=== PATIENT | female | born 2000 | race African-American/Black ===

== ENCOUNTER 2024-04-23 01:36 | Inpatient (IN) | payer OTHER ==
[2024-04-23 02:30] LABS: HEMATOCRIT 30.3 % (32.4-45.2); HEMOGLOBIN 9.6 GM/dL (10.7-15.3); MCH 25.7 pg (25.7-33.7); MCHC 31.6 g/dl (32.0-36.0); MEAN CELL VOLUME 81.5 fl (80-96); MEAN PLT VOLUME 8.1 fl (7.5-11.1); PLATELET COUNT 360 10^3/uL (134-434); RBC 3.72 M/mm3 (3.60-5.2); RDW 18.6 % (11.6-15.6); WHITE BLOOD COUNT 8.8 K/mm3 (4.0-10.0)
[2024-04-23 03:05] LABS: POTASSIUM 4.6 mmol/L (3.5-5.1)
[2024-04-23 03:08] LABS: ALBUMIN 3.3 g/dl (3.4-5.0); BLOOD UREA NITROGEN 15.3 mg/dL (7-18)
[2024-04-23 03:11] LABS: CREATININE 0.8 mg/dL (0.55-1.3)
[2024-04-23 03:13] LABS: BILIRUBIN,TOTAL 0.4 mg/dL (0.2-1); TOT PROT 6.9 g/dl (6.4-8.2)
[2024-04-23] MEDS ORDERED: APIXABAN 5 MG TABLET ONE (10:07)
[2024-04-23] MEDS: APIXABAN 5 MG TABLET PO SCH (11:11)
[2024-04-23 12:39] VITALS: BMI 59.9
[2024-04-23 15:18] LABS: COCAINE, UR NEGATIVE (NEGATIVE); METHADONE, UR NEGATIVE (NEGATIVE); OPIATES, URI NEGATIVE (NEGATIVE); PHENCYCLIDINE,URINE NEGATIVE (NEGATIVE)
[2024-04-23 15:19] LABS: URINE AMPHETAMINES NEGATIVE (NEGATIVE); URINE BARBITURATES NEGATIVE (NEGATIVE)
[2024-04-23 15:20] LABS: URINE BENZODIAZEPINES NEGATIVE (NEGATIVE)
[2024-04-24 00:06] VITALS: TEMP 98.2
[2024-04-24] MEDS ORDERED: ACETAMINOPHEN 325 MG TABLET (FP) PO PRN (03:00)
[2024-04-24 06:18] VITALS: BP 115/66; PULSE 69; RESP 16
[2024-04-24] MEDS ORDERED: guaiFENesin/D-METHORPHAN HB 10 ML UNIT-DOSE CUPS PO ONE (12:45)
[2024-04-25 13:10] LABS: PROTEIN S, FREE 75 % (61-136)
== END 2024-04-24 14:27 | disposition home or self-care (01) | DRG 176 ==
LOC: FER 01:36 → FM/S 10:07 → OBSVTOIN 10:23
PROVIDERS: ATTEND Internal Medicine
DX: I26.99 Other pulmonary embolism without acute cor pulmonale (principal); F12.90 Cannabis use, unspecified, uncomplicated; R05.9 Cough, unspecified; D64.9 Anemia, unspecified
CPT/HCPCS: 36415; 71275-TC; 80053; 80307; 81241; 82728; 83540; 83550; 84703; 85027; 85300; 85302; 85305; 85306; 85379; 85597; 85660; 85730; 86038; 86146; 86147; 93005; 93971-TC; 99285-25; G0378; Q9967